=== PATIENT | female | born 1950 | race Caucasian/White ===

== ENCOUNTER → 2023-07-01 16:37 | Outpatient (REF) | payer MEDICARE, SELFPAY | LOC: WDC 16:37 | PROVIDERS: ATTENDING PHYSICIAN Physician Assistant Medical | DX: Z12.31 Encounter for screening mammogram for malignant neoplasm of breast (principal) | CPT/HCPCS: 77063; 77067 ==

== ENCOUNTER 2023-12-05 02:50 | Emergency (ER) | payer MEDICARE, SELFPAY ==
[2023-12-05 02:51] VITALS: BMI 28.2
[2023-12-05 03:01] VITALS: BP 130/77
[2023-12-05 04:03] VITALS: BP 124/74
[2023-12-05] MEDS: NSS 1000 IV (04:15)
[2023-12-05 04:20] LABS: % Basophils 0.6 % (0-2); % Eosinophils 2.1 % (0-6); % Immature Granulocytes 0.4 % (0-0.5); % Lymphocytes 12.1 % (20.5-51.1); % Monocytes 5.6 % (1.7-9.3); % Neutrophils 79.2 % (42.2-75.2); Absolute Basophils 0.1 10^3/uL (0-0.2); Absolute Eosinophils 0.3 10^3/uL (0-0.7); Absolute Immature Granulocytes 0.1 10^3/uL (0-0.05); Absolute Lymphocytes 1.6 10^3/uL (1.2-3.4); Absolute Monocytes 0.8 10^3/uL (0.1-0.6); Absolute Neutrophils 10.6 10^3/uL (1.4-6.5); Hematocrit 37.8 % (37.0-47.0); Hemoglobin 12.5 g/dL (12.0-16.0); Mean Corp Hgb Conc. 33.1 g/dL (33.0-37.0); Mean Corpuscular Hgb 26.5 pg (27.0-31.0); Mean Corpuscular Volume 80.1 fL (81.0-99.0); Mean Platelet Volume 9.6 fL (7.4-10.4); Nucleated Red Blood Cells % 0 %; Platelet Count 268 10^3/uL (130-400); Red Blood Cell Count 4.72 10^6/uL (4.20-5.40); Red Cell Dist. Width 14.3 % (11.5-14.5); White Blood Cell Count 13.4 10^3/uL (4.8-10.8)
[2023-12-05 04:35] LABS: ALT (SGPT) 15 U/L (0-35); AST (SGOT) 27 U/L (14-36); Albumin 4.4 g/dl (3.5-5.0); Alkaline Phosphatase 57 U/L (38-126); Blood Urea Nitrogen 14 mg/dl (7-17); Calcium 10.1 mg/dl (8.4-10.2); Carbon Dioxide 28 mmol/L (22-30); Chloride 103 mmol/L (98-107); Estimated Creatinine Clearance 64 ml/min; Glucose 114 mg/dl (70-99); Potassium 4.3 mmol/L (3.5-5.1); Sodium 144 mmol/L (135-145); Total Bilirubin 0.7 mg/dl (0.2-1.3); Total Protein 6.9 g/dl (6.3-8.2); eGFR > 60.00
[2023-12-05 05:00] VITALS: BP 121/74
--- NOTE | 2023-12-05 05:32 | ED.GENMED ---
History of Present Illness
General
Chief Complaint: Fainting Sensation
Source: patient
Time Seen by Provider: 12/05/23 03:46
Nursing documentation reviewed up to this point in time: agreed with
History of Present Illness
History of Present Illness:
Pleasant 73-year-old female who presents with syncopal episode. Patient has been prepping for colonoscopy. She has been drinking clear liquids and the bowel prep. She was going to the bathroom when she got up and felt lightheaded. She did hit
her head on the bathroom shower door. She denies loss of consciousness. She did not have a headache or any trauma. Denies chest pain or shortness of breath.
Past History
Past History
ED Past Medical History: HTN and Hypercholesterolemia
ED Past Surgical History: Gynecological
Social History
Tobacco: Non-smoker
Living: with family
Employment: Retired
Family History
Family History: Other (Noncontributory)
Phy Exam
General Physical Exam
General Presentation: well appearing and mild distress
General age: appears stated age
General Skin: warm and dry
General Habitus: normal
General Mental: alert
General Hydration: appears well hydrated
ENT Exam
ENT Exam: EOMI, pharynx normal, neck supple and normocephalic
Eye Exam
Eye Exam: PERRL, cornea clear and conjunctiva normal
Cardiovascular Exam
Cardiovascular Exam: regular rate/rhythm, no edema, no murmur and normal peripheral pulses
Pulmonary Exam
Pulmonary Exam: lungs clear, no respiratory distress, no rales, no crackles, no rhonchi, no stridor, no wheezing and no cough
Gastrointestinal Exam
Gastrointestinal Exam: normal bowel sounds, non tender, soft, no organomegaly, no pulsatile mass and non distended
Neurological Exam
Neurological Exam: alert, oriented x3, no motor deficits and speech normal
Musculoskeletal Exam
Musculoskeletal Exam: full ROM and no edema
Skin Exam
Skin Exam: normal color, warm/dry, no rash and no petechia
Psychiatric Exam
Psychiatric Exam: normal mood/affect
Course
Orders/Labs/Results
Orders:
Orders
12/05/23 03:07
EKG [Electrocardiogram (*1)] Urgent
Reason for Study: Fatigue / Weakness
12/05/23 03:08
EKG- Treatment ONCE
12/05/23 03:46
0.9% Sodium Chloride 1000 ml [Nss] 1,000 ml IV BOLUS
12/05/23 03:59
Complete Blood Count/With Diff Urgent
Comprehensive Metabolic Panel Urgent
Abnormal Lab Results
12/05/23
03:59
WBC 13.4 H 10^3/uL
(4.8-10.8)
MCV 80.1 L fL
(81.0-99.0)
MCH 26.5 L pg
(27.0-31.0)
Abs Immat Gran (auto) 0.1 H 10^3/uL
(0-0.05)
Absolute Neuts (auto) 10.6 H 10^3/uL
(1.4-6.5)
Absolute Monos (auto) 0.8 H 10^3/uL
(0.1-0.6)
Neutrophils % 79.2 H %
(42.2-75.2)
Lymphocytes % 12.1 L %
(20.5-51.1)
Glucose 114 H mg/dl
(70-99)
12/05/23 03:59
12/05/23 03:59
Vital Signs
Initial and Last Documented VS:
Initial Vital Signs
Temp Pulse Resp BP Pulse Ox
97.6 F 84 18 130/77 98
12/05/23 03:01 12/05/23 03:01 12/05/23 03:01 12/05/23 03:01 12/05/23 03:01
Last Documented Vital Signs
Temp Pulse Resp BP Pulse Ox
97.6 F 84 18 121/74 97
12/05/23 03:01 12/05/23 03:01 12/05/23 03:01 12/05/23 05:00 12/05/23 05:30
*Critical Care Note
Total Time (30-74mins, 75-104mins- exclusive of procedures): Not Applicable
Update Note
Update Note:
12/05/2023 0532 AM: Patient feeling much better after fluids. Wishes to be discharged home. She will continue her prep and come in for her colonoscopy at 11:30 AM today. She has no further questions and her friend will be taking her home.
ED Attending Note
-
Portions of this chart may have been created with voice recognition software.� Occasional wrong word or��sound alike� substitutions may have occurred due to the inherent limitations of voice recognition software.
Discharge Plan
Departure
Patient Disposition: Home (Routine Discharge)
Date of Disposition: 12/05/23
Time of Disposition: 05:34
Patient with high blood pressure during this ER visit?: Yes
Condition: Good
Discharge Problem:
Vasovagal syncope
Instructions: Syncope (Fainting) (DC)
Prescriptions:
No Action
multivitamin [Daily Multiple] 1 EACH tablet
1 ea PO DAILY
omeprazole [Prilosec] 10 MG capsule,delayed release(DR/EC)
10 mg PO PRN PRN (Reason: reflux)
candesartan-hydrochlorothiazid [Atacand HCT] 1 EACH tablet
1 ea PO DAILY
simvastatin 20 MG tablet
20 mg PO QPM
calcium-vitamin D3-vitamin K 1 EACH tablet,chewable
1 ea PO DAILY
Referrals:
Suad Bishop PA-C [Family Provider] -
Activity Restrictions/Additional Instructions:
It was a pleasure meeting you and taking part in your care. We hope for your continued healing and wellness.
Please read discharge instructions in their entirety. However, they are for general education and may not describe your exact diagnosis at discharge. Information on your ER visit and medical conditions were discussed with you along with appropriate
follow up information...
If indicated, please take your medications as instructed and indicated on discharge paperwork.
Please schedule a follow up appointment as directed. Call to schedule an appointment
Please return to the emergency department with ANY change in, persisting, or worsening of symptoms. If any of your symptoms do not improve, or persist, or become more severe within 6-12 hours, please return to the emergency department for further
care.
Please return to the emergency department if you develop a headache, neck pain/stiffness, fever greater than 100.4F, chest pain, shortness of breath, persistent nausea, vomiting, slurred speech, difficulty walking, numbness/tingling, weakness, signs
of infection or any other symptoms that are worrisome to you.
If you have any questions or concerns please do not hesitate to call the Hospital at or E-mail me directly at [email or web address]
Interventions
Interventions:
*Risk Screen - Suicide Last Done: 12/05/23 03:01
*General Assessment Last Done: 12/05/23 03:01
*Neglect/Abuse Screening Last Done: 12/05/23 03:01
ED- Fall Risk Assessment Last Done: 12/05/23 04:39
*ED COVID-19 Vaccine History Last Done: 12/05/23 05:18
ED- Cardiac Assessment Last Done: 12/05/23 04:40
ED- Neurological Assessment Last Done: 12/05/23 04:38
Discharge Date and Time
Print Language: LAO
== END 2023-12-05 06:25 | disposition home or self-care (01) ==
LOC: EMR 02:50
PROVIDERS: EMERGENCY PHYSICIAN Student in an Organized Health Care Education/Training Program; FAMILY PHYSICIAN Physician Assistant Medical
DX: R55 Syncope and collapse (principal); R53.1 Weakness; W01.198A Fall on same level from slipping, tripping and stumbling with subsequent striking against other object, initial encounter; Y93.E8 Activity, other personal hygiene; I10 Essential (primary) hypertension; E78.00 Pure hypercholesterolemia, unspecified; K21.9 Gastro-esophageal reflux disease without esophagitis; M19.90 Unspecified osteoarthritis, unspecified site; Z85.3 Personal history of malignant neoplasm of breast
CPT/HCPCS: 99283; 80053; 85025; 93005

== ENCOUNTER → 2023-12-05 07:59 | Day surgery (SDC) | payer MEDICARE, SELFPAY | LOC: GI 07:59 | PROVIDERS: ATTENDING PHYSICIAN Specialist; FAMILY PHYSICIAN Physician Assistant Medical | DX: Z12.11 Encounter for screening for malignant neoplasm of colon (principal); Z86.010 Personal history of colon polyps; K57.30 Diverticulosis of large intestine without perforation or abscess without bleeding; D12.5 Benign neoplasm of sigmoid colon; K52.89 Other specified noninfective gastroenteritis and colitis; R12 Heartburn; K22.89 Other specified disease of esophagus; K31.7 Polyp of stomach and duodenum; R19.7 Diarrhea, unspecified | CPT/HCPCS: 45380; 43239; 88305 ==

== ENCOUNTER → 2024-06-16 06:53 | Outpatient (REF) | payer MEDICARE, SELFPAY | LOC: RAD 06:53 | PROVIDERS: ATTENDING PHYSICIAN Student in an Organized Health Care Education/Training Program; FAMILY PHYSICIAN Nurse Practitioner | DX: R05.1 Acute cough (principal) | CPT/HCPCS: 71046 ==

== ENCOUNTER → 2024-07-01 15:28 | Outpatient (REF) | payer MEDICARE, SELFPAY | LOC: WDC 15:28 | PROVIDERS: ATTENDING PHYSICIAN Nurse Practitioner | DX: Z12.31 Encounter for screening mammogram for malignant neoplasm of breast (principal) | CPT/HCPCS: 77063; 77067 ==

== ENCOUNTER 2024-11-23 15:07 | Emergency (ER) | payer MEDICARE, SELFPAY ==
[2024-11-23 15:14] VITALS: BP 136/74
[2024-11-23 15:46] LABS: Hematocrit 37.5 % (37.0-47.0); Hemoglobin 12.1 g/dL (12.0-16.0); Mean Corp Hgb Conc. 32.3 g/dL (33.0-37.0); Mean Corpuscular Volume 82.8 fL (81.0-99.0); Nucleated Red Blood Cells % 0 %; Platelet Count 288 10^3/uL (130-400); Red Cell Dist. Width 14.4 % (11.5-14.5)
[2024-11-23 15:53] LABS: ALT (SGPT) 14 U/L (0-35); AST (SGOT) 24 U/L (14-36); Albumin 4.4 g/dl (3.5-5.0); Alkaline Phosphatase 51 U/L (38-126); Blood Urea Nitrogen 18 mg/dl (7-17); Calcium 9.5 mg/dl (8.4-10.2); Carbon Dioxide 26 mmol/L (22-30); Chloride 104 mmol/L (98-107); Glucose 133 mg/dl (70-99); Potassium 4.4 mmol/L (3.5-5.1); Sodium 138 mmol/L (135-145); Total Protein 6.9 g/dl (6.3-8.2); eGFR > 60.00
[2024-11-23 16:00] LABS: INR 0.92; PT 12.7 Sec (11.4-14.6)
[2024-11-23 16:02] LABS: Troponin I < 0.012 ng/ml
[2024-11-23 19:40] VITALS: BP 146/82
--- NOTE | 2024-11-23 20:25 | ED.GENMED ---
History of Present Illness
General
Chief Complaint: Cardiac Symptoms
Source: patient
Exam Limitations: none
Time Seen by Provider: 11/23/24 20:20
Nursing documentation reviewed up to this point in time: agreed with
History of Present Illness
History of Present Illness:
Note:
CHIEF COMPLAINT(S)
Shortness of breath and intermittent fast heart rate.
HISTORY OF PRESENT ILLNESS
The patient is a 74-year-old female presenting with complaints of shortness of breath and intermittent episodes of increased heart rate, which she noticed approximately a month ago. She described her heart as 'beating fast' especially after eating
supper, thus prompting her visit to her primary care provider. The patient reports the absence of recent alcohol consumption. She has previously been evaluated in the emergency department. During todays consultation, she confirmed noticing these
episodes without any associated, significant palpitations or chest pain, except for occasional discomfort during certain activities. The patient reports attending regular classes and sometimes experiencing episodes of heart awareness without any
exertion-related triggering. Notably, she mentioned having a known heart murmur, which correlates with prior echocardiogram findings indicating tricuspid regurgitation, a condition that had been stable over time.
EXTERNAL RECORDS REVIEWED
The patients echocardiogram was reviewed, confirming a heart murmur consistent with tricuspid regurgitation. A chest X-ray and laboratory tests pertaining to liver, kidney function, electrolytes, and cardiac enzymes (troponin) were done today, which
all returned normal results.
REVIEW OF SYSTEMS
- Cardiovascular: Intermittent fast heart rate, known heart murmur, no chest pain mentioned at the time of examination.
- Respiratory: Shortness of breath, lungs clear on examination.
- Gastrointestinal: Occasional discomfort after meals.
PHYSICAL EXAM
General: Alert, no acute distress.
Skin: Warm, dry.
Head: Normocephalic, atraumatic.
Neck: Supple, trachea midline.
Eyes, ears, nose, mouth and throat: Oral mucosa moist.
Cardiovascular: Murmur noted, normal peripheral perfusion, no edema.
Respiratory: Non-labored respirations, lungs clear bilaterally on auscultation.
Gastrointestinal: Abdomen nondistended.
Back: Normal range of motion, normal alignment.
Musculoskeletal: Normal range of motion, normal strength.
Neurological: Alert and oriented to person, place, time, and situation, no focal neurological deficit observed.
Psychiatric: Cooperative, appropriate mood and affect.
PROBLEM LIST
Acute Problems:
- Intermittent rapid heart rate (Tachycardia)
- Shortness of breath
Chronic Problems:
- Heart murmur due to tricuspid regurgitation
PLAN
- Arrange for follow-up with a career development facilitator for further evaluation of the intermittent fast heart rate and potential changes in the heart murmur noted by echocardiogram.
- The patient will receive a call to schedule the cardiology appointment.
- Discharge with instructions provided, ensuring the patient can reach the ER if her condition changes or worsens.
DIFFERENTIAL DIAGNOSIS
The Differential Diagnosis includes, in no particular order and is not limited to:
- Atrial fibrillation
- Supraventricular tachycardia
- Heart failure
- Pulmonary embolism
- Cardiomyopathy
- Hyperthyroidism
- Anemia
- Electrolyte imbalance
- Anxiety
- Mitral valve prolapse
EKG
My independent EKG interpretation is:
- Rhythm: Sinus tachycardia
- Heart Rate: 104 bpm
- [place]: Left axis deviation
- QRS Duration: Right bundle branch block
- QT Interval: Normal
- NE Interval: Normal
- Comparison: No change from EKG of 12/05/2023
Disposition:
SUMMARY OF ENCOUNTER
The patient, a 74-year-old female, presented to the emergency department with complaints of shortness of breath and intermittent episodes of fast heart rate. Given her age and symptoms, a thorough evaluation was conducted to rule out acute
cardiovascular events. The patient has a history of tricuspid regurgitation with a heart murmur, which aligns with her current symptoms. The work-up included a chest X-ray, laboratory tests, and an EKG, all of which returned normal results. Sinus
tachycardia was observed in the EKG. No acute coronary syndrome (ACS) or pulmonary embolism (PE) was suspected. After providing reassurance and discussing potential etiologies related to her known tricuspid regurgitation, the patient was assessed as
being stable for discharge.
DISPOSITION
Discharge
PLAN
The patient will be scheduled for a follow-up appointment with a career development facilitator to further evaluate the intermittent fast heart rate and potential changes in the heart murmur. She is advised to visit the ER if her condition changes or worsens.
INDEPENDENT REVIEW OF LABS AND INTERPRETATION OF TESTS
- My independent review of cardiac enzyme tests (troponin) is normal.
- My independent review of the chest X-ray is normal.
- My independent EKG interpretation is sinus tachycardia with a heart rate of 104 bpm, left axis deviation, right bundle branch block, and normal QT and NE intervals.
MEDICAL DECISION MAKING
1. Number and Complexity of Problems Addressed: Chronic conditions affecting care include tricuspid regurgitation. Differential diagnosis considered: atrial fibrillation, supraventricular tachycardia, heart failure, pulmonary embolism,
cardiomyopathy, hyperthyroidism, anemia, electrolyte imbalance, anxiety, and mitral valve prolapse.
2. Data:
- Category 1: External records reviewed include a previous echocardiogram confirming tricuspid regurgitation.
- Category 2: My independent interpretation of the EKG revealed sinus tachycardia, left axis deviation, right bundle branch block, and normal intervals.
- Category 3: None mentioned.
3. Risk:
Consideration of Admission/Observation: Escalation of care, including admission/observation, was considered given the complexity and risk of the patients presenting complaint, exam findings, and/or underlying comorbidities. However, ultimately, I
feel the patient is safe for outpatient management with close follow-up. Reasoning: The work-up is reassuring, does not reveal any acute life/organ-threatening processes, patients symptoms well-controlled upon reevaluation, reexamination is
reassuring, vitals are stable, patient agreeable with discharge, reliable for follow-up.
DIAGNOSIS
- Palpitations (ICD-10: R00.2)
- Dyspnea (ICD-10: R06.00)
Past History
Past History
ED Past Medical History: HTN and Hypercholesterolemia
ED Past Surgical History: Gynecological
Social History
Tobacco: Non-smoker
Living: with family
Employment: Retired
Family History
Family History: Other (Noncontributory)
Phy Exam
Physical Exam
Physical Exam:
.
Scores
Heart Score for Chest Pain Patients
STEMI patient?: No
History: Slightly or Non-Suspicious
ECG: Nonspecific Repolarization
Age: >/= 65 years
Risk Factors: 1 or 2 Risk Factors
Troponin: </= Normal Limit
Heart Score for Chest Pain Patients: 4
Heart Score Risk: 20.3% MACE over next 6 weeks
Course
Orders/Labs/Results
Orders:
Orders
11/23/24 15:09
Electrocardiogram (*1) Urgent
Reason for Study: CAD
EKG- Treatment ONCE
11/23/24 15:18
CR Chest - 2 Views Urgent
Comment:
Reason For Exam: SOB
11/23/24 15:25
Complete Blood Count/With Diff Urgent
Comprehensive Metabolic Panel Urgent
NT-proBNP Urgent
Prothrombin Time Urgent
TSH Reflex To Free T4 Urgent
Troponin I Urgent
Abnormal Lab Results
11/23/24
15:25
MCH 26.7 L pg
(27.0-31.0)
MCHC 32.3 L g/dL
(33.0-37.0)
BUN 18 H mg/dl
(7-17)
Glucose 133 H mg/dl
(70-99)
11/23/24 15:25
11/23/24 15:25
Vital Signs
Initial and Last Documented VS:
Initial Vital Signs
Temp Pulse Resp BP Pulse Ox
98.1 F 100 17 136/74 95
11/23/24 15:14 11/23/24 15:14 11/23/24 15:14 11/23/24 15:14 11/23/24 15:14
Last Documented Vital Signs
Temp Pulse Resp BP Pulse Ox
98.6 F 97 16 146/82 98
11/23/24 19:40 11/23/24 19:40 11/23/24 19:40 11/23/24 19:40 11/23/24 20:26
*Pulse Oximetry
SaO2: 98
Oxygen Mode of Delivery: Room air
Patient hypoxic: no
*Critical Care Note
Total Time (30-74mins, 75-104mins- exclusive of procedures): Not Applicable
ED Attending Note
-
Portions of this chart may have been created with voice recognition software.� Occasional wrong word or��sound alike� substitutions may have occurred due to the inherent limitations of voice recognition software.
Discharge Plan
Departure
Patient Disposition: Home (Routine Discharge)
Date of Disposition: 11/23/24
Time of Disposition: 20:43
Patient with high blood pressure during this ER visit?: Yes
Condition: Good
Discharge Problem:
Heart palpitations, Chest pain, Dyspnea
Instructions: Chest Pain DCA Follow Up, BLOOD PRESSURE, Palpitations - ED discharge instructions
Prescriptions:
No Action
multivitamin [Daily Multiple] 1 EACH tablet
1 ea PO DAILY
omeprazole [Prilosec] 10 MG capsule,delayed release(DR/EC)
10 mg PO PRN PRN (Reason: reflux)
candesartan-hydrochlorothiazid [Atacand HCT] 1 EACH tablet
1 ea PO DAILY
simvastatin 20 MG tablet
20 mg PO QPM
calcium-vitamin D3-vitamin K 1 EACH tablet,chewable
1 ea PO DAILY
Referrals:
Margot Cheney CRNP [Family Provider, Family Practice]
Interventions
Interventions:
*Risk Screen - Suicide Last Done: 11/23/24 15:15
*General Assessment Last Done: 11/23/24 15:15
*Neglect/Abuse Screening Last Done: 11/23/24 15:15
*ED COVID-19 Vaccine History Last Done: 11/23/24 15:15
Discharge Date and Time
Print Language: CITIZEN OF [place]
[2024-11-23 20:43] VITALS: BP 137/83
== END 2024-11-23 21:14 | disposition home or self-care (01) ==
LOC: EMR 15:07
PROVIDERS: Emergency Medicine; EMERGENCY PHYSICIAN Emergency Medicine; FAMILY PHYSICIAN Nurse Practitioner
DX: R00.2 Palpitations (principal); R07.9 Chest pain, unspecified; R06.00 Dyspnea, unspecified; E78.00 Pure hypercholesterolemia, unspecified; I10 Essential (primary) hypertension; I07.1 Rheumatic tricuspid insufficiency; I45.10 Unspecified right bundle-branch block
CPT/HCPCS: 99285; 71046; 80053; 83880; 84443; 84484; 85025; 85610; 93005

== ENCOUNTER → 2024-11-25 13:05 | Outpatient (REF) | payer MEDICARE, SELFPAY | LOC: RCS 13:05 | PROVIDERS: ATTENDING PHYSICIAN Internal Medicine Interventional Cardiology; FAMILY PHYSICIAN Nurse Practitioner | DX: R00.2 Palpitations (principal); R07.89 Other chest pain; I35.8 Other nonrheumatic aortic valve disorders | CPT/HCPCS: 93225; 93226 ==

== ENCOUNTER → 2024-12-14 07:07 | Outpatient (REF) | payer MEDICARE, SELFPAY | LOC: HWRCS 07:07 | PROVIDERS: ATTENDING PHYSICIAN Internal Medicine Interventional Cardiology; FAMILY PHYSICIAN Nurse Practitioner | DX: R00.2 Palpitations (principal); I35.8 Other nonrheumatic aortic valve disorders | CPT/HCPCS: 93306 ==